=== PATIENT | male | born 1955 | race Caucasian/White ===

== ENCOUNTER 2016-02-12 10:17 | Emergency (ER) | payer OTHER ==
[~2016-02-12] VITALS: Ht 170.2 cm; Wt 86.4 kg
[~2016-02-12 10:17] MED LIST: CELLCEPT 5500 MG/TAB PO; RAYOS5 MG PO; TAMBOCOR50 MG PO
[2016-02-12 10:20] VITALS: TEMP 96.9
[2016-02-12] MEDS ORDERED: PREDNISONE 5MG5 MG PO (10:26)
[2016-02-12] MEDS ORDERED: AMOXICILLIN 50500 MG PO (10:27)
[2016-02-12] MEDS ORDERED: GLUCOTROL10 MG PO (10:27)
[2016-02-12 10:39] LABS: BASO % 0.6 % (0.0-2.0); EOS # 0.1 (0.0-0.7); EOS % 2.2 % (0-4.0); GRAN # 3.7 (1.4-6.5); GRAN % 59.2 % (42.2-75.2); HEMATOCRIT 46.5 % (42.0-52.0); HEMOGLOBIN 16.4 g/dl (13.5-18.0); LYMPH # 1.8 (1.2-3.4); LYMPH % 28.5 % (20.0-51.0); MEAN CELL VOLUME 87 fl (80.0-100.0); MEAN CORPUSCULAR HEMOGLOBIN 31 pg (27.0-31.0); MEAN CORPUSCULAR HGB CONC 35 g/dl (33.0-37.0); MEAN PLATELET VOLUME 9.9 fl (7.4-10.4); MONO # 0.5 (0.1-0.6); MONO % 8.4 % (1.7-9.3); PLATELET COUNT 144 K/mm3 (130-400); RED BLOOD COUNT 5.35 M/mm3 (4.20-5.60); REDCELL DISTRIBUTION WIDTH-CV 13.3 % (11.5-14.5); WHITE BLOOD COUNT 6.3 K/mm3 (4.8-10.8)
[2016-02-12 10:58] LABS: INR 1.1 (0.8-3.0); PROTHROMBIN TIME 12.6 SECONDS (9.7-12.8)
[2016-02-12 11:05] LABS: ADJUSTED CALCIUM 9.7 mg/dL (8.4-10.2); ALANINE AMINOTRANSFERASE 145 U/L (21-72); ALKALINE PHOSPHATASE 83 U/L (50-136); BLOOD UREA NITROGEN 17 mg/dL (9-20); CALCIUM 9.7 mg/dL (8.4-10.2); CARBON DIOXIDE 25 mmol/L (22-30); CREATININE, serum 0.65 mg/dL (0.66-1.25); GLUCOSE 266 mg/dL (74-106); POTASSIUM 4.5 mmol/L (3.4-5.0); SODIUM 135 mmol/L (137-145); TOTAL PROTEIN 7.3 gm/dL (6.4-8.2)
[2016-02-12 11:17] LABS: CHLORIDE 100 mmol/L (98-107); TROPONIN-I < 0.012 ng/mL (0.000-0.034)
[2016-02-12 11:18] LABS: ANION GAP 10 mmol/L (7-16)
[2016-02-12 13:45] VITALS: BP 147/88; PULSE 84
== END 2016-02-12 13:56 | disposition home or self-care (01) ==
LOC: COL.ER 10:17
PROVIDERS: Family Medicine
DX: R07.9 Chest pain, unspecified (principal)

== ENCOUNTER → 2016-02-14 | Outpatient (CLI) | payer OTHER ==
[~2016-02-14] MED LIST changes: +AMOXICILLIN 50500 MG PO; +GLUCOTROL10 MG PO; +PREDNISONE 5MG5 MG PO
== END ==
LOC: COL.CARD 11:03
DX: I49.8 Other specified cardiac arrhythmias (principal); R00.2 Palpitations

== ENCOUNTER → 2016-07-02 | Outpatient (CLI) | payer OTHER ==
[2016-07-03 00:12] LABS: HEMATOCRIT 44.8 % (42.0-52.0); HEMOGLOBIN 15.3 g/dl (13.5-18.0); MEAN CELL VOLUME 95 fl (80.0-100.0); MEAN CORPUSCULAR HEMOGLOBIN 32 pg (27.0-31.0); MEAN CORPUSCULAR HGB CONC 34 g/dl (33.0-37.0); PLATELET COUNT 159 K/mm3 (130-400); RED BLOOD COUNT 4.73 M/mm3 (4.20-5.60); REDCELL DISTRIBUTION WIDTH-CV 13.5 % (11.5-14.5)
[2016-07-03 00:14] LABS: ADD PATHOLOGY DIFF REVIEW NO
[2016-07-03 00:20] LABS: ADJUSTED CALCIUM 9.6 mg/dL (8.4-10.2); ALBUMIN 3.6 gm/dL (3.5-5.0); BILIRUBIN,TOTAL 1.2 mg/dL (0.0-1.0); CALCIUM 9.3 mg/dL (8.4-10.2); CREATININE, serum 0.79 mg/dL (0.66-1.25); POTASSIUM 3.6 mmol/L (3.4-5.0); TOTAL PROTEIN 7.1 gm/dL (6.4-8.2)
[2016-07-03 00:38] LABS: BAND 7 % (0-10); EOSINOPHIL 2 % (0-4); METAMYELOCYTE 2 % (0-0); NEUTROPHILS 40 % (42.0-75.2); PLATELET ESTIMATE NORMAL (NORMAL); TOTAL CELLS COUNTED 100
[2016-07-03 00:50] LABS: PSA-TOTAL 1.43 ng/mL (0-4)
[2016-07-03 16:54] LABS: ALBUMIN/CREATININE RATIO URINE 45.8 mg/g (0.0-29.0)
== END ==
LOC: COL.LAB 23:03
PROVIDERS: Family Medicine
DX: Z00.00 Encounter for general adult medical examination without abnormal findings (principal)
CPT/HCPCS: G0103

== ENCOUNTER → 2016-10-08 | Outpatient (CLI) | payer OTHER ==
[2016-10-08 13:31] LABS: HEMATOCRIT 47.2 % (42.0-52.0); MEAN CELL VOLUME 96 fl (80.0-100.0); MEAN CORPUSCULAR HEMOGLOBIN 33 pg (27.0-31.0); MEAN CORPUSCULAR HGB CONC 34 g/dl (33.0-37.0); MEAN PLATELET VOLUME 10.2 fl (7.4-10.4); PLATELET COUNT 115 K/mm3 (130-400); REDCELL DISTRIBUTION WIDTH-CV 12.5 % (11.5-14.5); WHITE BLOOD COUNT 6.2 K/mm3 (4.8-10.8)
[2016-10-08 13:37] LABS: ADJUSTED CALCIUM 9.4 mg/dL (8.4-10.2); ALBUMIN 3.9 gm/dL (3.5-5.0); BILIRUBIN,TOTAL 1.5 mg/dL (0.0-1.0); CALCIUM 9.3 mg/dL (8.4-10.2); CREATININE, serum 0.75 mg/dL (0.66-1.25); TOTAL PROTEIN 8.1 gm/dL (6.4-8.2)
[2016-10-08 14:06] LABS: PSA-TOTAL 0.68 ng/mL (0-4); THYROID STIMULATING HORMONE 0.53 uIU/mL (0.465-4.680)
[2016-10-09 00:04] LABS: ALBUMIN/CREATININE RATIO URINE 18.2 mg/g (0.0-29.0)
== END ==
LOC: COL.LAB 12:26
PROVIDERS: Family Medicine
DX: Z00.00 Encounter for general adult medical examination without abnormal findings (principal)
CPT/HCPCS: G0103

== ENCOUNTER → 2017-01-29 | Outpatient (CLI) | payer OTHER ==
[2017-01-29 07:42] LABS: BASO # 0.1 (0.0-0.2); BASO % 0.7 % (0.0-2.0); EOS # 0.3 (0.0-0.7); EOS % 3.5 % (0-4.0); GRAN # 3.8 (1.4-6.5); GRAN % 53.6 % (42.2-75.2); HEMATOCRIT 50.1 % (42.0-52.0); HEMOGLOBIN 17.1 g/dl (13.5-18.0); LYMPH # 2.4 (1.2-3.4); LYMPH % 33.1 % (20.0-51.0); MEAN CELL VOLUME 98 fl (80.0-100.0); MEAN CORPUSCULAR HEMOGLOBIN 33 pg (27.0-31.0); MEAN CORPUSCULAR HGB CONC 34 g/dl (33.0-37.0); MONO # 0.6 (0.1-0.6); MONO % 8.4 % (1.7-9.3); PLATELET COUNT 115 K/mm3 (130-400); RED BLOOD COUNT 5.14 M/mm3 (4.20-5.60); WHITE BLOOD COUNT 7.2 K/mm3 (4.8-10.8)
[2017-01-29 07:52] LABS: URINE PROTEIN:CREAT RATIO 0.1 (0.00-0.14)
[2017-01-29 07:56] LABS: BILIRUBIN,TOTAL 1.2 mg/dL (0.0-1.0); CHOLESTEROL RISK RATIO 4.2; CREATININE, serum 0.75 mg/dL (0.66-1.25); POTASSIUM 4.4 mmol/L (3.4-5.0)
[2017-01-29 08:24] LABS: PSA-TOTAL 2.01 ng/mL (0-4); THYROID STIMULATING HORMONE 0.733 uIU/mL (0.465-4.680)
== END ==
LOC: COL.LAB 07:03
PROVIDERS: Family Medicine
DX: Z00.00 Encounter for general adult medical examination without abnormal findings (principal)
CPT/HCPCS: G0103

== ENCOUNTER → 2017-04-02 | Outpatient (CLI) | payer OTHER ==
[2017-04-02] VITALS (9 sets, daily range): BP systolic 87–149; BP diastolic 55–94; PULSE 75–89
[~2017-04-02] VITALS: Ht 170.2 cm; Wt 79.5 kg
[~2017-04-02] MED LIST changes: +INVOKAMET1 PO; +INVOKAMET4 PO; +PREDNISONE20 MG PO; +TRESIBA FL100 UNIT/1 SQ; +VITAMIN C500 MG PO
== END ==
LOC: COL.RAD 12:45
DX: K75.4 Autoimmune hepatitis (principal); K22.70 Barrett's esophagus without dysplasia
CPT/HCPCS: J7040

== ENCOUNTER → 2017-04-02 | Outpatient (CLI) | payer OTHER ==
[2017-04-02 11:57] LABS: BASO # 0.1 (0.0-0.2); EOS # 0.1 (0.0-0.7); GRAN # 3.5 (1.4-6.5); GRAN % 49.7 % (42.2-75.2); HEMATOCRIT 51.7 % (42.0-52.0); HEMOGLOBIN 17.5 g/dl (13.5-18.0); LYMPH # 2.7 (1.2-3.4); LYMPH % 38.1 % (20.0-51.0); MEAN CELL VOLUME 98 fl (80.0-100.0); MEAN CORPUSCULAR HEMOGLOBIN 33 pg (27.0-31.0); MEAN CORPUSCULAR HGB CONC 34 g/dl (33.0-37.0); MEAN PLATELET VOLUME 9.6 fl (7.4-10.4); MONO # 0.7 (0.1-0.6); MONO % 9.2 % (1.7-9.3); PLATELET COUNT 125 K/mm3 (130-400); RED BLOOD COUNT 5.29 M/mm3 (4.20-5.60); REDCELL DISTRIBUTION WIDTH-CV 12.9 % (11.5-14.5)
[2017-04-02 12:10] LABS: ALBUMIN 4.1 gm/dL (3.5-5.0); BILIRUBIN,TOTAL 1.1 mg/dL (0.0-1.0); CALCIUM 9.2 mg/dL (8.4-10.2); CREATININE, serum 0.89 mg/dL (0.66-1.25); POTASSIUM 4.1 mmol/L (3.4-5.0); TOTAL PROTEIN 7.7 gm/dL (6.4-8.2)
[2017-04-02 12:14] LABS: INR 1.2 (0.8-3.0); PROTHROMBIN TIME 13.6 SECONDS (9.7-12.8)
== END ==
LOC: COL.LAB 11:00
PROVIDERS: Family Medicine
DX: K75.4 Autoimmune hepatitis (principal); R74.8 Abnormal levels of other serum enzymes

== ENCOUNTER → 2017-04-02 | Outpatient (CLI) | payer OTHER | LOC: COL.LAB 06:53 | DX: E11.9 Type 2 diabetes mellitus without complications (principal) ==

== ENCOUNTER 2017-04-30 05:53 | Day surgery (SDC) | payer OTHER ==
[~2017-04-30] VITALS: Ht 170.2 cm; Wt 80.3 kg
[~2017-04-30 05:53] MED LIST changes: -PREDNISONE20 MG PO
[2017-04-30 06:40] VITALS: BP 102/71; PULSE 95; TEMP 97.8
[2017-04-30 07:50] VITALS: BP 100/68; PULSE 82
[2017-04-30 08:05] VITALS: BP 94/64; PULSE 85
[2017-04-30 08:20] VITALS: BP 109/71; PULSE 85
== END 2017-04-30 08:30 | disposition home or self-care (01) ==
LOC: SDCO 05:53
DX: Z12.11 Encounter for screening for malignant neoplasm of colon (principal); K22.70 Barrett's esophagus without dysplasia; K21.9 Gastro-esophageal reflux disease without esophagitis; D69.6 Thrombocytopenia, unspecified; K75.4 Autoimmune hepatitis; R53.83 Other fatigue; Z79.82 Long term (current) use of aspirin; Z79.52 Long term (current) use of systemic steroids
CPT/HCPCS: OP; J2250; J3010; J7030; J7042

== ENCOUNTER → 2017-05-21 | Outpatient (CLI) | payer OTHER ==
[2017-05-21 12:40] LABS: BASO % 0.6 % (0.0-2.0); EOS # 0.1 (0.0-0.7); EOS % 1.5 % (0-4.0); GRAN # 3.4 (1.4-6.5); GRAN % 51.3 % (42.2-75.2); HEMOGLOBIN 16.9 g/dl (13.5-18.0); LYMPH # 2.3 (1.2-3.4); LYMPH % 34.9 % (20.0-51.0); MEAN CELL VOLUME 95 fl (80.0-100.0); MEAN CORPUSCULAR HEMOGLOBIN 33 pg (27.0-31.0); MEAN CORPUSCULAR HGB CONC 35 g/dl (33.0-37.0); MEAN PLATELET VOLUME 9.8 fl (7.4-10.4); MONO # 0.7 (0.1-0.6); MONO % 11.2 % (1.7-9.3); PLATELET COUNT 142 K/mm3 (130-400); RED BLOOD COUNT 5.17 M/mm3 (4.20-5.60); REDCELL DISTRIBUTION WIDTH-CV 12.8 % (11.5-14.5)
[2017-05-21 12:50] LABS: ALBUMIN 4.1 gm/dL (3.5-5.0); CALCIUM 9.7 mg/dL (8.4-10.2); CREATININE, serum 0.88 mg/dL (0.66-1.25); POTASSIUM 4.4 mmol/L (3.4-5.0); TOTAL PROTEIN 8.8 gm/dL (6.4-8.2)
== END ==
LOC: COL.LAB 12:12
PROVIDERS: Physician Assistant
DX: K75.4 Autoimmune hepatitis (principal); R74.8 Abnormal levels of other serum enzymes

== ENCOUNTER → 2017-06-18 | Outpatient (CLI) | payer OTHER ==
[2017-06-18 08:07] LABS: HEMATOCRIT 47.5 % (42.0-52.0); HEMOGLOBIN 16.4 g/dl (13.5-18.0); MEAN CELL VOLUME 93 fl (80.0-100.0); MEAN CORPUSCULAR HEMOGLOBIN 32 pg (27.0-31.0); MEAN CORPUSCULAR HGB CONC 35 g/dl (33.0-37.0); PLATELET COUNT 128 K/mm3 (130-400); RED BLOOD COUNT 5.11 M/mm3 (4.20-5.60); REDCELL DISTRIBUTION WIDTH-CV 12.5 % (11.5-14.5)
[2017-06-18 08:20] LABS: ALBUMIN 3.8 gm/dL (3.5-5.0); BILIRUBIN,TOTAL 1.1 mg/dL (0.0-1.0); CALCIUM 9.3 mg/dL (8.4-10.2); CHOLESTEROL RISK RATIO 4.4; CREATININE, serum 0.77 mg/dL (0.66-1.25); TOTAL PROTEIN 8.4 gm/dL (6.4-8.2)
[2017-06-18 09:15] LABS: PSA-TOTAL 0.43 ng/mL (0-4)
[2017-06-18 10:06] LABS: THYROID STIMULATING HORMONE 0.655 uIU/mL (0.465-4.680)
== END ==
LOC: COL.LAB 07:34
PROVIDERS: Family Medicine
DX: Z00.00 Encounter for general adult medical examination without abnormal findings (principal); Z12.5 Encounter for screening for malignant neoplasm of prostate; Z13.220 Encounter for screening for lipoid disorders; E11.9 Type 2 diabetes mellitus without complications; R94.6 Abnormal results of thyroid function studies
CPT/HCPCS: G0103

== ENCOUNTER → 2017-07-19 | Outpatient (CLI) | payer OTHER ==
[2017-07-19 16:07] LABS: BILIRUBIN UNCONJUGATED 0.6 mg/dL (0.0-1.1); BILIRUBIN,DIRECT 0.5 mg/dL (0.0-0.4); BILIRUBIN,TOTAL 1.1 mg/dL (0.0-1.0); TOTAL PROTEIN 8.2 gm/dL (6.4-8.2)
== END ==
LOC: COL.LAB 15:27
PROVIDERS: Internal Medicine Gastroenterology
DX: K75.4 Autoimmune hepatitis (principal)

== ENCOUNTER → 2017-08-23 | Outpatient (CLI) | payer OTHER | LOC: COL.LAB 08:46 | DX: R31.9 Hematuria, unspecified (principal) ==

== ENCOUNTER → 2017-08-23 | Outpatient (CLI) | payer OTHER ==
[2017-08-23 09:47] LABS: ALBUMIN 3.9 gm/dL (3.5-5.0); BILIRUBIN UNCONJUGATED 0.7 mg/dL (0.0-1.1); BILIRUBIN,DIRECT 0.6 mg/dL (0.0-0.4); BILIRUBIN,TOTAL 1.4 mg/dL (0.0-1.0); TOTAL PROTEIN 8.1 gm/dL (6.4-8.2)
== END ==
LOC: COL.LAB 08:49
PROVIDERS: Internal Medicine Gastroenterology
DX: K75.4 Autoimmune hepatitis (principal)

== ENCOUNTER → 2017-08-25 | Outpatient (CLI) | payer OTHER | LOC: COL.RAD 07:51 | DX: N20.1 Calculus of ureter (principal); N20.0 Calculus of kidney; N32.9 Bladder disorder, unspecified ==

== ENCOUNTER → 2017-09-02 | Outpatient (CLI) | payer OTHER | LOC: COL.LAB 07:14 | DX: E11.9 Type 2 diabetes mellitus without complications (principal) ==

== ENCOUNTER → 2017-09-30 | Outpatient (CLI) | payer OTHER ==
[2017-09-30 10:05] LABS: ALBUMIN 3.8 gm/dL (3.5-5.0); BILIRUBIN,DIRECT 0.6 mg/dL (0.0-0.4); BILIRUBIN,TOTAL 1.5 mg/dL (0.0-1.0)
== END ==
LOC: COL.LAB 09:22
DX: K75.4 Autoimmune hepatitis (principal)

== ENCOUNTER → 2017-11-01 | Outpatient (CLI) | payer OTHER ==
[2017-11-01 07:34] LABS: ALBUMIN 3.7 gm/dL (3.5-5.0); TOTAL PROTEIN 7.8 gm/dL (6.4-8.2)
[2017-11-01 07:43] LABS: BILIRUBIN,DIRECT 0.5 mg/dL (0.0-0.4)
[2017-11-01 07:44] LABS: BILIRUBIN UNCONJUGATED 0.6 mg/dL (0.0-1.1)
== END ==
LOC: COL.LAB 07:00
PROVIDERS: Internal Medicine Gastroenterology
DX: K75.4 Autoimmune hepatitis (principal)

== ENCOUNTER → 2017-11-29 | Outpatient (CLI) | payer OTHER ==
[2017-11-29 07:57] LABS: BASO % 0.8 % (0.0-2.0); EOS # 0.2 (0.0-0.7); EOS % 3.6 % (0-4.0); GRAN # 2.3 (1.4-6.5); GRAN % 48.5 % (42.2-75.2); HEMATOCRIT 47.1 % (42.0-52.0); HEMOGLOBIN 15.5 g/dl (13.5-18.0); LYMPH # 1.7 (1.2-3.4); LYMPH % 36.2 % (20.0-51.0); MEAN CELL VOLUME 99 fl (80.0-100.0); MEAN CORPUSCULAR HEMOGLOBIN 33 pg (27.0-31.0); MEAN CORPUSCULAR HGB CONC 33 g/dl (33.0-37.0); MEAN PLATELET VOLUME 10.2 fl (7.4-10.4); MONO # 0.5 (0.1-0.6); MONO % 10.7 % (1.7-9.3); PLATELET COUNT 120 K/mm3 (130-400); RED BLOOD COUNT 4.77 M/mm3 (4.20-5.60); REDCELL DISTRIBUTION WIDTH-CV 12.7 % (11.5-14.5)
[2017-11-29 08:11] LABS: ALBUMIN 3.8 gm/dL (3.5-5.0); BILIRUBIN,TOTAL 1.5 mg/dL (0.0-1.0); CALCIUM 9.2 mg/dL (8.4-10.2); CREATININE, serum 0.79 mg/dL (0.66-1.25); POTASSIUM 4.3 mmol/L (3.4-5.0); TOTAL PROTEIN 8.6 gm/dL (6.4-8.2)
== END ==
LOC: COL.LAB 07:23
PROVIDERS: Family Medicine
DX: K75.4 Autoimmune hepatitis (principal)

== ENCOUNTER → 2017-12-13 | Outpatient (CLI) | payer OTHER ==
[2017-12-13 09:31] LABS: BASO % 0.6 % (0.0-2.0); EOS # 0.1 (0.0-0.7); EOS % 1.3 % (0-4.0); GRAN # 2.8 (1.4-6.5); GRAN % 52.4 % (42.2-75.2); HEMATOCRIT 49.3 % (42.0-52.0); HEMOGLOBIN 16.9 g/dl (13.5-18.0); LYMPH % 37.2 % (20.0-51.0); MEAN CELL VOLUME 95 fl (80.0-100.0); MEAN CORPUSCULAR HEMOGLOBIN 33 pg (27.0-31.0); MEAN CORPUSCULAR HGB CONC 34 g/dl (33.0-37.0); MEAN PLATELET VOLUME 10.6 fl (7.4-10.4); MONO # 0.4 (0.1-0.6); MONO % 8.1 % (1.7-9.3); PLATELET COUNT 109 K/mm3 (130-400); REDCELL DISTRIBUTION WIDTH-CV 12.4 % (11.5-14.5)
[2017-12-13 17:21] LABS: ALBUMIN 3.9 gm/dL (3.5-5.0); BILIRUBIN,TOTAL 1.1 mg/dL (0.0-1.0); CALCIUM 9.6 mg/dL (8.4-10.2); CREATININE, serum 1.57 mg/dL (0.66-1.25); POTASSIUM 4.9 mmol/L (3.4-5.0); TOTAL PROTEIN 8.3 gm/dL (6.4-8.2)
== END ==
LOC: COL.LAB 08:21
PROVIDERS: Physician Assistant
DX: K75.4 Autoimmune hepatitis (principal)

== ENCOUNTER → 2017-12-20 | Outpatient (CLI) | payer OTHER ==
[2017-12-20 09:47] LABS: BILIRUBIN,TOTAL 1.3 mg/dL (0.0-1.0); CALCIUM 9.5 mg/dL (8.4-10.2); CREATININE, serum 1.06 mg/dL (0.66-1.25); MAGNESIUM 1.4 mg/dL (1.6-2.3); PHOSPHOROUS 3.6 mg/dL (2.5-4.5); POTASSIUM 4.4 mmol/L (3.4-5.0); TOTAL PROTEIN 8.5 gm/dL (6.4-8.2)
== END ==
LOC: COL.LAB 08:46
PROVIDERS: Physician Assistant
DX: K75.4 Autoimmune hepatitis (principal); K22.710 Barrett's esophagus with low grade dysplasia

== ENCOUNTER → 2018-01-03 | Outpatient (CLI) | payer OTHER ==
[2018-01-03 10:04] LABS: ALBUMIN 4.1 gm/dL (3.5-5.0); BILIRUBIN,TOTAL 1.4 mg/dL (0.0-1.0); CALCIUM 9.8 mg/dL (8.4-10.2); MAGNESIUM 1.7 mg/dL (1.6-2.3); PHOSPHOROUS 3.9 mg/dL (2.5-4.5); TOTAL PROTEIN 8.8 gm/dL (6.4-8.2)
== END ==
LOC: COL.LAB 08:21
PROVIDERS: Physician Assistant
DX: K75.4 Autoimmune hepatitis (principal); K22.710 Barrett's esophagus with low grade dysplasia

== ENCOUNTER → 2018-02-18 | Outpatient (CLI) | payer OTHER | LOC: COL.LAB 13:43 | DX: R74.8 Abnormal levels of other serum enzymes (principal) ==

== ENCOUNTER → 2018-02-28 | Outpatient (CLI) | payer OTHER ==
[2018-02-28 12:54] LABS: BASO % 0.6 % (0.0-2.0); EOS # 0.1 (0.0-0.7); EOS % 2.1 % (0-4.0); GRAN # 2.3 (1.4-6.5); GRAN % 47.9 % (42.2-75.2); HEMOGLOBIN 15.7 g/dl (13.5-18.0); LYMPH # 1.9 (1.2-3.4); LYMPH % 39.7 % (20.0-51.0); MEAN CELL VOLUME 95 fl (80.0-100.0); MEAN CORPUSCULAR HEMOGLOBIN 32 pg (27.0-31.0); MEAN CORPUSCULAR HGB CONC 34 g/dl (33.0-37.0); MEAN PLATELET VOLUME 9.7 fl (7.4-10.4); MONO # 0.5 (0.1-0.6); MONO % 9.5 % (1.7-9.3); PLATELET COUNT 96 K/mm3 (130-400); RED BLOOD COUNT 4.85 M/mm3 (4.20-5.60); REDCELL DISTRIBUTION WIDTH-CV 13.3 % (11.5-14.5)
[2018-02-28 12:56] LABS: INR 1.3 (0.8-3.0); PROTHROMBIN TIME 14.8 SECONDS (9.7-12.8)
[2018-02-28 13:01] LABS: ALBUMIN 4.1 gm/dL (3.5-5.0); BILIRUBIN,TOTAL 1.4 mg/dL (0.0-1.0); CALCIUM 9.5 mg/dL (8.4-10.2); CREATININE, serum 0.79 mg/dL (0.66-1.25); POTASSIUM 3.8 mmol/L (3.4-5.0); TOTAL PROTEIN 8.7 gm/dL (6.4-8.2)
== END ==
LOC: COL.LAB 12:07
PROVIDERS: Physician Assistant
DX: R74.8 Abnormal levels of other serum enzymes (principal)

== ENCOUNTER → 2018-03-04 | Outpatient (CLI) | payer OTHER ==
--- NOTE | 2018-03-01 09:35 | NUR ---
attempted to reach pt. Left message on answering machine. Pt given instructions and phone number to return call to go over medical health history and medications.
[~2018-03-04] VITALS: Ht 170.2 cm; Wt 72.1 kg
[2018-03-04] VITALS (14 sets, daily range): BP systolic 87–157; BP diastolic 49–96; PULSE 55–92
--- NOTE | 2018-03-04 07:40 | NUR ---
PT BROUGHTINTO THE CT ROOM. MONITORING EQUIPMENT PLACED ON PT. PT HAS PVC ON THE MONITOR. TIME OUT COMPLETED.
--- NOTE | 2018-03-04 07:45 | NUR ---
PT DOING WELL.
--- NOTE | 2018-03-04 07:50 | NUR ---
PT DOING WELL. NO PAIN. HEART RYTHUM REMAINS REGULAR WITH PVC'S. PT DENIES NEEDS OR PAIN
--- NOTE | 2018-03-04 08:00 | NUR ---
PT DOING WELL. NO COMPLICATIONS, NO PAIN
--- NOTE | 2018-03-04 08:05 | NUR ---
BP DROPPED, NOTIFIED. WILL HOLD PRESSURE. RECHECK OF BP SHOWS 101/62. MONITORING EQUIPMENT REMOVED AND PT ASSISTED INTO CHAIR AND TAKEN TO RAD HOLDING. NO PAIN, JUST LIGHT HEADED.
--- NOTE | 2018-03-04 10:05 | NUR ---
PT HAD NO QUESTIONS REGARDING DC INSTRUCTIONS THAT WE WENT OVER [facility]ER. PT WAS TAKEN DOWN TO RIDE IN WHEELCHAIR. PT DENIES PAIN, TENDERNESS OR LIGHTHEADEDNESS.
== END ==
LOC: COL.RAD 06:30
DX: R74.8 Abnormal levels of other serum enzymes (principal)

== ENCOUNTER → 2018-03-28 | Outpatient (CLI) | payer OTHER | LOC: COL.LAB 07:57 | DX: R94.5 Abnormal results of liver function studies (principal) ==

== ENCOUNTER → 2018-03-30 | Outpatient (CLI) | payer OTHER | LOC: COL.LAB 10:19 | DX: K75.4 Autoimmune hepatitis (principal); R74.8 Abnormal levels of other serum enzymes ==

== ENCOUNTER → 2018-03-30 | Outpatient (CLI) | payer OTHER ==
[2018-03-30 08:56] LABS: ALBUMIN 3.8 gm/dL (3.5-5.0); BILIRUBIN,TOTAL 1.5 mg/dL (0.0-1.0); CALCIUM 9.4 mg/dL (8.4-10.2); CREATININE, serum 0.9 mg/dL (0.66-1.25); POTASSIUM 4.7 mmol/L (3.4-5.0); TOTAL PROTEIN 8.4 gm/dL (6.4-8.2)
== END ==
LOC: COL.LAB 07:42
PROVIDERS: Physician Assistant
DX: R74.8 Abnormal levels of other serum enzymes (principal)

== ENCOUNTER 2018-04-06 06:27 | Day surgery (SDC) | payer OTHER ==
[~2018-04-06] VITALS: Ht 170.2 cm; Wt 71.8 kg
[2018-04-06 07:36] VITALS: BP 125/84; PULSE 52; TEMP 97.9
[2018-04-06] MEDS ORDERED: INVOKAMET1 PO (09:05)
[2018-04-06] MEDS ORDERED: PRIL40 PO (09:05)
[2018-04-06] MEDS ORDERED: TAMBOCOR50 MG PO (09:06)
[2018-04-06] MEDS ORDERED: PROGRAF 1MG1 MG PO (09:07)
[2018-04-06 10:35] VITALS: BP 109/75; PULSE 83
--- NOTE | 2018-04-06 10:35 | NUR ---
Patient returns to room 1 per cart and arouses to verbal stimuli. Foot of cart elevated and delia wrap dressing clean and dry. Post op shoe is on. IV fluids infusing. Siderails up x2 and call light in reach. Allowed to rest.
[2018-04-06 10:50] VITALS: BP 109/77; PULSE 82
--- NOTE | 2018-04-06 10:50 | NUR ---
Resting without complaints of pain and foot of cart elevated. Dressing remains dry and post op shoe in place.
[2018-04-06 11:05] VITALS: BP 116/86; PULSE 76
--- NOTE | 2018-04-06 11:05 | NUR ---
Continues to rest and is sipping on water. Room air sats 97%.
[2018-04-06 11:20] VITALS: BP 116/83; PULSE 76
--- NOTE | 2018-04-06 11:20 | NUR ---
Eating muffin and drinking water. Denies need for pain medication. Foot of cart elevated and dressing dry.
[2018-04-06 11:35] VITALS: BP 133/74; PULSE 81
--- NOTE | 2018-04-06 11:35 | NUR ---
Spouse in room. IV discontinued and bandaid applied to site. Denies pain or nausea.
--- NOTE | 2018-04-06 11:45 | NUR ---
Patient sitting on edge of cart and is dressing with assist of spouse. Post op shoe on.
[2018-04-06] MEDS ORDERED: PERCOCET 325 MG1 TA2 PO (11:58)
--- NOTE | 2018-04-06 12:04 | NUR ---
Given dismissal instructions and voices understanding of home cares and follow as scheduled by Dr. Whipple. Was provided script for Percocet. Assisted into wheelchair and taken by wheelchair to spouse's office who will be taking the patient home. Belongings with patient.
== END 2018-04-06 12:04 | disposition home or self-care (01) ==
LOC: SDCO 06:27
DX: M20.22 Hallux rigidus, left foot (principal)
CPT/HCPCS: J0690; J1885; J2250; J2405; J2704; J3010; J7120

== ENCOUNTER → 2018-05-12 | Outpatient (CLI) | payer OTHER ==
[~2018-05-12] MED LIST changes: +PERCOCET 325 MG1 TA2 PO; +PRIL40 PO; +PROGRAF 1MG1 MG PO
[2018-05-12 08:18] LABS: BASO % 0.5 % (0.0-2.0); EOS # 0.1 (0.0-0.7); EOS % 1.3 % (0-4.0); GRAN # 5.3 (1.4-6.5); GRAN % 68.1 % (42.2-75.2); HEMATOCRIT 42.3 % (42.0-52.0); HEMOGLOBIN 13.8 g/dl (13.5-18.0); LYMPH # 1.6 (1.2-3.4); LYMPH % 21.1 % (20.0-51.0); MEAN CELL VOLUME 96 fl (80.0-100.0); MEAN CORPUSCULAR HEMOGLOBIN 31 pg (27.0-31.0); MEAN CORPUSCULAR HGB CONC 33 g/dl (33.0-37.0); MEAN PLATELET VOLUME 9.7 fl (7.4-10.4); MONO # 0.7 (0.1-0.6); MONO % 8.5 % (1.7-9.3); PLATELET COUNT 142 K/mm3 (130-400); RED BLOOD COUNT 4.39 M/mm3 (4.20-5.60); REDCELL DISTRIBUTION WIDTH-CV 14.1 % (11.5-14.5)
== END ==
LOC: COL.LAB 07:49
PROVIDERS: Family Medicine
DX: K75.4 Autoimmune hepatitis (principal)

== ENCOUNTER → 2018-05-31 | Outpatient (CLI) | payer OTHER ==
[2018-05-31 08:20] LABS: INR 1.4 (0.8-3.0); PROTHROMBIN TIME 15.7 SECONDS (9.7-12.8)
[2018-05-31 08:28] LABS: ALBUMIN 3.4 gm/dL (3.5-5.0); CALCIUM 9.1 mg/dL (8.4-10.2); CREATININE, serum 0.84 (0.66-1.25); POTASSIUM 4.3 mmol/L (3.4-5.0); TOTAL PROTEIN 8.5 gm/dL (6.4-8.2)
== END ==
LOC: COL.LAB 07:55
PROVIDERS: Physician Assistant
DX: K75.4 Autoimmune hepatitis (principal)

== ENCOUNTER → 2018-07-11 | Outpatient (CLI) | payer OTHER ==
[2018-07-11 10:40] LABS: INR 1.2 (0.8-3.0); PROTHROMBIN TIME 14.1 SECONDS (9.7-12.8)
[2018-07-11 10:46] LABS: ALBUMIN 3.5 gm/dL (3.5-5.0); BILIRUBIN,TOTAL 1.3 mg/dL (0.0-1.0); CALCIUM 9.6 mg/dL (8.4-10.2); CREATININE, serum 0.98 (0.66-1.25); POTASSIUM 5.1 mmol/L (3.4-5.0); TOTAL PROTEIN 8.4 gm/dL (6.4-8.2)
== END ==
LOC: COL.LAB 09:47
PROVIDERS: Physician Assistant
DX: K75.4 Autoimmune hepatitis (principal); R53.1 Weakness

== ENCOUNTER → 2018-08-05 | Outpatient (CLI) | payer OTHER ==
[2018-08-05 08:47] LABS: HEMATOCRIT 39.5 % (42.0-52.0); HEMOGLOBIN 13.4 g/dl (13.5-18.0); MEAN CELL VOLUME 95 fl (80.0-100.0); MEAN CORPUSCULAR HEMOGLOBIN 32 pg (27.0-31.0); MEAN CORPUSCULAR HGB CONC 34 g/dl (33.0-37.0); MEAN PLATELET VOLUME 10.1 fl (7.4-10.4); PLATELET COUNT 96 K/mm3 (130-400); RED BLOOD COUNT 4.16 M/mm3 (4.20-5.60); REDCELL DISTRIBUTION WIDTH-CV 14.3 % (11.5-14.5)
[2018-08-05 09:16] LABS: ERYTHROCYTE SEDIMENTATION RATE 13 mm/hr (0-30)
[2018-08-05 09:31] LABS: ALBUMIN 3.6 gm/dL (3.5-5.0); BILIRUBIN,TOTAL 1.4 mg/dL (0.0-1.0); C-REACTIVE PROTEIN 0.7 mg/dL (0.0-0.9); CALCIUM 9.3 mg/dL (8.4-10.2); CHOLESTEROL RISK RATIO 3.4; CREATININE, serum 0.89 (0.66-1.25); POTASSIUM 4.3 mmol/L (3.4-5.0); TOTAL PROTEIN 8.3 gm/dL (6.4-8.2)
[2018-08-05 09:59] LABS: TSH w REFLEX 0.935 uIU/mL (0.465-4.680)
[2018-08-05 19:24] LABS: URINE MICROALBUMIN 1.6 mg/dL (0.0-1.7)
== END ==
LOC: COL.LAB 07:53
PROVIDERS: Family Medicine
DX: E11.9 Type 2 diabetes mellitus without complications (principal); R53.83 Other fatigue

== ENCOUNTER → 2018-08-22 | Outpatient (CLI) | payer OTHER | LOC: COL.RAD 07:09 | DX: R41.3 Other amnesia (principal) | CPT/HCPCS: A9585 ==

== ENCOUNTER → 2018-08-23 | Outpatient (CLI) | payer OTHER | LOC: COL.LAB 07:12 | DX: G31.84 Mild cognitive impairment of uncertain or unknown etiology (principal); F51.01 Primary insomnia ==

== ENCOUNTER → 2018-09-06 | Outpatient (CLI) | payer OTHER ==
[2018-09-06 11:03] LABS: BASO % 0.5 % (0.0-2.0); EOS # 0.1 (0.0-0.7); EOS % 2.5 % (0-4.0); GRAN % 53.9 % (42.2-75.2); HEMATOCRIT 39.8 % (42.0-52.0); HEMOGLOBIN 13.2 g/dl (13.5-18.0); LYMPH # 1.8 (1.2-3.4); MEAN CELL VOLUME 96 fl (80.0-100.0); MEAN CORPUSCULAR HEMOGLOBIN 32 pg (27.0-31.0); MEAN CORPUSCULAR HGB CONC 33 g/dl (33.0-37.0); MEAN PLATELET VOLUME 10.2 fl (7.4-10.4); MONO # 0.5 (0.1-0.6); MONO % 9.7 % (1.7-9.3); PLATELET COUNT 99 K/mm3 (130-400); RED BLOOD COUNT 4.15 M/mm3 (4.20-5.60); REDCELL DISTRIBUTION WIDTH-CV 14.2 % (11.5-14.5)
== END ==
LOC: COL.LAB 10:27
PROVIDERS: Physician Assistant
DX: K74.60 Unspecified cirrhosis of liver (principal); K75.4 Autoimmune hepatitis

== ENCOUNTER → 2018-09-09 | Outpatient (CLI) | payer OTHER ==
[2018-09-09 13:06] LABS: BASO # 0.1 (0.0-0.2); EOS # 0.2 (0.0-0.7); EOS % 3.1 % (0-4.0); GRAN # 2.7 (1.4-6.5); GRAN % 51.7 % (42.2-75.2); HEMATOCRIT 38.6 % (42.0-52.0); LYMPH # 1.7 (1.2-3.4); LYMPH % 33.6 % (20.0-51.0); MEAN CELL VOLUME 96 fl (80.0-100.0); MEAN CORPUSCULAR HEMOGLOBIN 32 pg (27.0-31.0); MEAN CORPUSCULAR HGB CONC 34 g/dl (33.0-37.0); MEAN PLATELET VOLUME 10.2 fl (7.4-10.4); MONO # 0.5 (0.1-0.6); MONO % 10.2 % (1.7-9.3); PLATELET COUNT 98 K/mm3 (130-400); RED BLOOD COUNT 4.04 M/mm3 (4.20-5.60); REDCELL DISTRIBUTION WIDTH-CV 13.8 % (11.5-14.5)
[2018-09-09 13:14] LABS: ALBUMIN 3.6 gm/dL (3.5-5.0); BILIRUBIN,TOTAL 1.2 mg/dL (0.0-1.0); CALCIUM 9.2 mg/dL (8.4-10.2); CREATININE, serum 0.86 (0.66-1.25); POTASSIUM 4.4 mmol/L (3.4-5.0); TOTAL PROTEIN 8.1 gm/dL (6.4-8.2)
== END ==
LOC: COL.LAB 12:24
PROVIDERS: Physician Assistant
DX: K74.60 Unspecified cirrhosis of liver (principal); K75.4 Autoimmune hepatitis

== ENCOUNTER → 2018-10-03 | Outpatient (CLI) | payer OTHER ==
[2018-10-03 17:26] LABS: ALBUMIN 3.8 gm/dL (3.5-5.0); BILIRUBIN,TOTAL 0.9 mg/dL (0.0-1.0); CREATININE, serum 1.15 (0.66-1.25); POTASSIUM 4.3 mmol/L (3.4-5.0)
[2018-10-03 17:30] LABS: BASO % 0.5 % (0.0-2.0); EOS # 0.1 (0.0-0.7); EOS % 3.1 % (0-4.0); HEMATOCRIT 38.7 % (42.0-52.0); HEMOGLOBIN 13.1 g/dl (13.5-18.0); LYMPH # 1.4 (1.2-3.4); LYMPH % 36.5 % (20.0-51.0); MEAN CELL VOLUME 95 fl (80.0-100.0); MEAN CORPUSCULAR HEMOGLOBIN 32 pg (27.0-31.0); MEAN CORPUSCULAR HGB CONC 34 g/dl (33.0-37.0); MEAN PLATELET VOLUME 10.2 fl (7.4-10.4); MONO # 0.3 (0.1-0.6); MONO % 8.4 % (1.7-9.3); PLATELET COUNT 82 K/mm3 (130-400); RED BLOOD COUNT 4.06 M/mm3 (4.20-5.60); REDCELL DISTRIBUTION WIDTH-CV 13.6 % (11.5-14.5)
== END ==
LOC: COL.LAB 16:26
PROVIDERS: Physician Assistant
DX: K74.60 Unspecified cirrhosis of liver (principal); K75.4 Autoimmune hepatitis

== ENCOUNTER → 2018-10-21 | Outpatient (CLI) | payer OTHER | LOC: COL.LAB 10:53 | DX: R74.8 Abnormal levels of other serum enzymes (principal) ==

== ENCOUNTER → 2018-11-02 | Outpatient (CLI) | payer OTHER ==
[2018-11-02 10:15] LABS: ALBUMIN 3.8 gm/dL (3.5-5.0); BILIRUBIN,TOTAL 1.2 mg/dL (0.0-1.0); CALCIUM 9.4 mg/dL (8.4-10.2); CREATININE, serum 1.08 (0.66-1.25); MAGNESIUM 1.8 mg/dL (1.6-2.3); POTASSIUM 4.5 mmol/L (3.4-5.0)
== END ==
LOC: COL.LAB 09:31
PROVIDERS: Internal Medicine Gastroenterology
DX: K75.4 Autoimmune hepatitis (principal); K74.60 Unspecified cirrhosis of liver

== ENCOUNTER → 2018-11-16 | Outpatient (CLI) | payer OTHER ==
[2018-11-16 13:50] LABS: ALBUMIN 3.6 gm/dL (3.5-5.0); BILIRUBIN,TOTAL 0.9 mg/dL (0.0-1.0); CALCIUM 9.5 mg/dL (8.4-10.2); CREATININE, serum 0.92 (0.66-1.25); POTASSIUM 4.8 mmol/L (3.4-5.0); TOTAL PROTEIN 7.8 gm/dL (6.4-8.2)
== END ==
LOC: COL.LAB 13:06
PROVIDERS: Physician Assistant
DX: K74.60 Unspecified cirrhosis of liver (principal); K75.4 Autoimmune hepatitis; R53.83 Other fatigue; R74.8 Abnormal levels of other serum enzymes; R25.1 Tremor, unspecified

== ENCOUNTER → 2019-01-04 | Outpatient (CLI) | payer OTHER | LOC: COL.LAB 07:57 | DX: R74.8 Abnormal levels of other serum enzymes (principal) ==

== ENCOUNTER → 2019-01-13 | Outpatient (CLI) | payer OTHER ==
[2019-01-13 11:53] LABS: BASO % 0.6 % (0.0-2.0); EOS # 0.2 (0.0-0.7); EOS % 2.8 % (0-4.0); GRAN # 3.3 (1.4-6.5); GRAN % 60.3 % (42.2-75.2); HEMATOCRIT 38.6 % (42.0-52.0); HEMOGLOBIN 12.6 g/dl (13.5-18.0); LYMPH # 1.4 (1.2-3.4); LYMPH % 26.7 % (20.0-51.0); MEAN CELL VOLUME 99 fl (80.0-100.0); MEAN CORPUSCULAR HEMOGLOBIN 32 pg (27.0-31.0); MEAN CORPUSCULAR HGB CONC 33 g/dl (33.0-37.0); MEAN PLATELET VOLUME 10.5 fl (7.4-10.4); MONO # 0.5 (0.1-0.6); MONO % 9.4 % (1.7-9.3); PLATELET COUNT 100 K/mm3 (130-400); RED BLOOD COUNT 3.91 M/mm3 (4.20-5.60); REDCELL DISTRIBUTION WIDTH-CV 13.8 % (11.5-14.5)
[2019-01-13 11:56] LABS: INR 1.3 (0.8-3.0); PROTHROMBIN TIME 14.7 SECONDS (9.7-12.8)
[2019-01-13 12:06] LABS: ALBUMIN 3.4 gm/dL (3.5-5.0); BILIRUBIN,TOTAL 1.6 mg/dL (0.0-1.0); CALCIUM 8.9 mg/dL (8.4-10.2); CREATININE, serum 0.88 (0.66-1.25); POTASSIUM 4.5 mmol/L (3.4-5.0); TOTAL PROTEIN 8.1 gm/dL (6.4-8.2)
== END ==
LOC: COL.LAB 11:10
PROVIDERS: Physician Assistant
DX: K75.4 Autoimmune hepatitis (principal); K74.60 Unspecified cirrhosis of liver

== ENCOUNTER → 2019-01-26 | Outpatient (CLI) | payer OTHER ==
[2019-01-26 09:27] LABS: HEMATOCRIT 38.1 % (42.0-52.0); HEMOGLOBIN 12.7 g/dl (13.5-18.0); MEAN CELL VOLUME 96 fl (80.0-100.0); MEAN CORPUSCULAR HEMOGLOBIN 32 pg (27.0-31.0); MEAN CORPUSCULAR HGB CONC 33 g/dl (33.0-37.0); MEAN PLATELET VOLUME 10.5 fl (7.4-10.4); PLATELET COUNT 101 K/mm3 (130-400); RED BLOOD COUNT 3.96 M/mm3 (4.20-5.60); REDCELL DISTRIBUTION WIDTH-CV 13.8 % (11.5-14.5)
[2019-01-26 09:46] LABS: ALBUMIN 3.4 gm/dL (3.5-5.0); BILIRUBIN,TOTAL 1.3 mg/dL (0.0-1.0); CALCIUM 8.9 mg/dL (8.4-10.2); CHOLESTEROL RISK RATIO 4.2; CREATININE, serum 0.89 (0.66-1.25); POTASSIUM 4.4 mmol/L (3.4-5.0); TOTAL PROTEIN 8.1 gm/dL (6.4-8.2)
[2019-01-26 10:15] LABS: TSH w REFLEX 0.982 uIU/mL (0.465-4.680)
[2019-01-26 22:47] LABS: URINE MICROALBUMIN 0.5 mg/dL (0.0-1.7)
== END ==
LOC: COL.LAB 08:50
PROVIDERS: Family Medicine
DX: E11.9 Type 2 diabetes mellitus without complications (principal)

== ENCOUNTER → 2019-02-13 | Outpatient (CLI) | payer OTHER ==
--- NOTE | 2019-02-09 08:20 | NUR ---
LMOM WITH INSTRUCTIONS AND CONTACT INFORMATION
== END ==
LOC: COL.VAS 07:52
DX: I51.7 Cardiomegaly (principal); I08.0 Rheumatic disorders of both mitral and aortic valves

== ENCOUNTER → 2019-02-20 | Outpatient (CLI) | payer OTHER ==
[2019-02-20 07:27] LABS: BASO % 0.9 % (0.0-2.0); EOS # 0.2 (0.0-0.7); EOS % 3.8 % (0-4.0); GRAN # 2.1 (1.4-6.5); GRAN % 45.1 % (42.2-75.2); HEMOGLOBIN 12.7 g/dl (13.5-18.0); LYMPH # 1.9 (1.2-3.4); LYMPH % 39.8 % (20.0-51.0); MEAN CELL VOLUME 96 fl (80.0-100.0); MEAN CORPUSCULAR HEMOGLOBIN 32 pg (27.0-31.0); MEAN CORPUSCULAR HGB CONC 33 g/dl (33.0-37.0); MEAN PLATELET VOLUME 10.5 fl (7.4-10.4); MONO # 0.5 (0.1-0.6); PLATELET COUNT 100 K/mm3 (130-400); RED BLOOD COUNT 3.94 M/mm3 (4.20-5.60); REDCELL DISTRIBUTION WIDTH-CV 14.9 % (11.5-14.5)
[2019-02-20 07:40] LABS: ALBUMIN 3.4 gm/dL (3.5-5.0); BILIRUBIN,TOTAL 1.6 mg/dL (0.0-1.0); CALCIUM 9.2 mg/dL (8.4-10.2); CREATININE, serum 1.29 (0.66-1.25); POTASSIUM 4.1 mmol/L (3.4-5.0); TOTAL PROTEIN 8.5 gm/dL (6.4-8.2)
== END ==
LOC: COL.LAB 06:58
PROVIDERS: Physician Assistant
DX: K74.60 Unspecified cirrhosis of liver (principal); K75.4 Autoimmune hepatitis; R41.82 Altered mental status, unspecified

== ENCOUNTER → 2019-03-08 | Outpatient (CLI) | payer OTHER ==
[~2019-03-08] VITALS: Ht 170.3 cm; Wt 69.1 kg
[~2019-03-08] MED LIST changes: +TAMBOCOR 1100 MG/TAB PO
[2019-03-08 10:06] VITALS: BP 158/89; PULSE 79
[2019-03-08 11:29] VITALS: BP 120/64; PULSE 82
[2019-03-08 11:30] VITALS: BP 129/66; PULSE 79
[2019-03-08 11:31] VITALS: BP 122/82; PULSE 79
[2019-03-08 11:32] VITALS: BP 133/70; PULSE 78
== END ==
LOC: COL.CARD 09:56
DX: I49.3 Ventricular premature depolarization (principal); I35.9 Nonrheumatic aortic valve disorder, unspecified; Z79.899 Other long term (current) drug therapy
CPT/HCPCS: A9500; J2785

== ENCOUNTER → 2019-03-17 | Outpatient (CLI) | payer OTHER ==
[2019-03-17 10:46] LABS: ALBUMIN 3.3 gm/dL (3.5-5.0); BILIRUBIN,TOTAL 1.8 mg/dL (0.0-1.0); CALCIUM 9.2 mg/dL (8.4-10.2); CREATININE, serum 1.16 (0.66-1.25); POTASSIUM 4.7 mmol/L (3.4-5.0); TOTAL PROTEIN 7.5 gm/dL (6.4-8.2)
[2019-03-17 10:55] LABS: BASO % 0.1 % (0.0-2.0); GRAN # 6.4 (1.4-6.5); GRAN % 72.4 % (42.2-75.2); HEMATOCRIT 38.6 % (42.0-52.0); HEMOGLOBIN 12.9 g/dl (13.5-18.0); LYMPH # 1.7 (1.2-3.4); LYMPH % 19.1 % (20.0-51.0); MEAN CELL VOLUME 98 fl (80.0-100.0); MEAN CORPUSCULAR HEMOGLOBIN 33 pg (27.0-31.0); MEAN CORPUSCULAR HGB CONC 33 g/dl (33.0-37.0); MEAN PLATELET VOLUME 11.1 fl (7.4-10.4); MONO # 0.7 (0.1-0.6); MONO % 7.8 % (1.7-9.3); PLATELET COUNT 84 K/mm3 (130-400); RED BLOOD COUNT 3.96 M/mm3 (4.20-5.60); REDCELL DISTRIBUTION WIDTH-CV 15.7 % (11.5-14.5)
== END ==
LOC: COL.LAB 10:00
PROVIDERS: Physician Assistant
DX: R74.8 Abnormal levels of other serum enzymes (principal); K75.4 Autoimmune hepatitis; K74.60 Unspecified cirrhosis of liver; R53.83 Other fatigue; I49.9 Cardiac arrhythmia, unspecified; R63.0 Anorexia; R06.02 Shortness of breath; R53.1 Weakness

== ENCOUNTER → 2019-03-20 | Outpatient (CLI) | payer OTHER ==
[2019-03-20 13:59] LABS: HEMATOCRIT 40.1 % (42.0-52.0); HEMOGLOBIN 13.4 g/dl (13.5-18.0); MEAN CELL VOLUME 97 fl (80.0-100.0); MEAN CORPUSCULAR HEMOGLOBIN 32 pg (27.0-31.0); MEAN CORPUSCULAR HGB CONC 33 g/dl (33.0-37.0); MEAN PLATELET VOLUME 9.9 fl (7.4-10.4); PLATELET COUNT 82 K/mm3 (130-400); RED BLOOD COUNT 4.13 M/mm3 (4.20-5.60); REDCELL DISTRIBUTION WIDTH-CV 15.9 % (11.5-14.5)
[2019-03-20 14:12] LABS: ALBUMIN 3.2 gm/dL (3.5-5.0); BILIRUBIN,TOTAL 1.9 mg/dL (0.0-1.0); CALCIUM 8.6 mg/dL (8.4-10.2); CHOLESTEROL RISK RATIO 4.2; CREATININE, serum 1.12 (0.66-1.25); POTASSIUM 4.1 mmol/L (3.4-5.0); TOTAL PROTEIN 7.3 gm/dL (6.4-8.2)
[2019-03-20 14:41] LABS: TSH w REFLEX 0.932 uIU/mL (0.465-4.680)
[2019-03-20 23:00] LABS: URINE MICROALBUMIN 0.9 mg/dL (0.0-1.7)
== END ==
LOC: COL.LAB 13:21
PROVIDERS: Family Medicine
DX: E11.9 Type 2 diabetes mellitus without complications (principal)

== ENCOUNTER → 2019-03-31 | Outpatient (CLI) | payer OTHER | LOC: COL.LAB 08:14 | DX: K74.60 Unspecified cirrhosis of liver (principal); K75.4 Autoimmune hepatitis ==

== ENCOUNTER → 2019-04-19 | Outpatient (CLI) | payer OTHER ==
[2019-04-19 09:21] LABS: ALBUMIN 3.5 gm/dL (3.5-5.0); BILIRUBIN,TOTAL 1.5 mg/dL (0.0-1.0); CALCIUM 8.9 mg/dL (8.4-10.2); CREATININE, serum 0.79 (0.66-1.25); POTASSIUM 4.1 mmol/L (3.4-5.0); TOTAL PROTEIN 7.9 gm/dL (6.4-8.2)
[2019-04-19 09:24] LABS: HEMOGLOBIN 11.4 g/dl (13.5-18.0); MEAN CELL VOLUME 100 fl (80.0-100.0); MEAN CORPUSCULAR HEMOGLOBIN 32 pg (27.0-31.0); MEAN CORPUSCULAR HGB CONC 32 g/dl (33.0-37.0); MEAN PLATELET VOLUME 10.2 fl (7.4-10.4); PLATELET COUNT 106 K/mm3 (130-400); RED BLOOD COUNT 3.53 M/mm3 (4.20-5.60)
[2019-04-19 09:49] LABS: HEMATOCRIT 35.4 % (42.0-52.0)
[2019-04-19 09:51] LABS: THYROID STIMULATING HORMONE 1.32 uIU/mL (0.465-4.680)
[2019-04-19 10:26] LABS: EOSINOPHIL 1 % (0-4); LYMPHOCYTE 45 % (20.0-51.0); NEUTROPHILS 40 % (42.0-75.2)
[2019-04-19 10:27] LABS: PLATELET ESTIMATE DECREASED (NORMAL)
== END ==
LOC: COL.LAB 08:14
PROVIDERS: Internal Medicine Medical Oncology
DX: D69.6 Thrombocytopenia, unspecified (principal)

== ENCOUNTER → 2019-05-29 | Outpatient (CLI) | payer OTHER ==
[2019-05-29 11:16] LABS: BASO % 0.7 % (0.0-2.0); EOS # 0.1 (0.0-0.7); EOS % 2.4 % (0-4.0); GRAN # 2.2 (1.4-6.5); GRAN % 54.4 % (42.2-75.2); HEMATOCRIT 34.9 % (42.0-52.0); HEMOGLOBIN 11.6 g/dl (13.5-18.0); LYMPH # 1.4 (1.2-3.4); LYMPH % 32.9 % (20.0-51.0); MEAN CELL VOLUME 93 fl (80.0-100.0); MEAN CORPUSCULAR HEMOGLOBIN 31 pg (27.0-31.0); MEAN CORPUSCULAR HGB CONC 33 g/dl (33.0-37.0); MEAN PLATELET VOLUME 10.3 fl (7.4-10.4); MONO # 0.4 (0.1-0.6); MONO % 9.4 % (1.7-9.3); PLATELET COUNT 84 K/mm3 (130-400); RED BLOOD COUNT 3.74 M/mm3 (4.20-5.60); REDCELL DISTRIBUTION WIDTH-CV 14.1 % (11.5-14.5)
[2019-05-29 11:24] LABS: ALBUMIN 3.4 gm/dL (3.5-5.0); BILIRUBIN,TOTAL 1.4 mg/dL (0.0-1.0); CREATININE, serum 0.93 (0.66-1.25); INR 1.3 (0.8-3.0); POTASSIUM 4.6 mmol/L (3.4-5.0); PROTHROMBIN TIME 15.4 SECONDS (9.7-12.8); TOTAL PROTEIN 7.9 gm/dL (6.4-8.2)
== END ==
LOC: COL.LAB 10:49
PROVIDERS: Physician Assistant
DX: K74.60 Unspecified cirrhosis of liver (principal); K75.4 Autoimmune hepatitis

== ENCOUNTER → 2019-06-12 | Outpatient (CLI) | payer OTHER | LOC: COL.LAB 08:30 | DX: K74.60 Unspecified cirrhosis of liver (principal); K75.4 Autoimmune hepatitis ==

== ENCOUNTER → 2019-07-18 | Outpatient (CLI) | payer OTHER ==
[2019-07-18 11:05] LABS: MEAN CELL VOLUME 92 fl (80.0-100.0); MEAN CORPUSCULAR HEMOGLOBIN 30 pg (27.0-31.0); MEAN CORPUSCULAR HGB CONC 33 g/dl (33.0-37.0); MEAN PLATELET VOLUME 10.1 fl (7.4-10.4); PLATELET COUNT 105 K/mm3 (130-400); RED BLOOD COUNT 3.95 M/mm3 (4.20-5.60); REDCELL DISTRIBUTION WIDTH-CV 15.1 % (11.5-14.5)
[2019-07-18 11:07] LABS: HEMATOCRIT 36.2 % (42.0-52.0)
[2019-07-18 11:22] LABS: ALBUMIN 3.6 gm/dL (3.5-5.0); BILIRUBIN,TOTAL 1.9 mg/dL (0.0-1.0); CALCIUM 9.1 mg/dL (8.4-10.2); CREATININE, serum 1.02 (0.66-1.25); POTASSIUM 4.4 mmol/L (3.4-5.0); TOTAL PROTEIN 8.3 gm/dL (6.4-8.2)
[2019-07-18 11:50] LABS: TSH w REFLEX 0.596 uIU/mL (0.465-4.680)
[2019-07-18 21:09] LABS: URINE MICROALBUMIN 1.1 mg/dL (0.0-1.7)
== END ==
LOC: COL.LAB 10:23
PROVIDERS: Family Medicine
DX: E11.9 Type 2 diabetes mellitus without complications (principal)

== ENCOUNTER → 2019-07-24 | Outpatient (CLI) | payer OTHER ==
[2019-07-24 11:24] LABS: BASO % 0.8 % (0.0-2.0); EOS # 0.1 (0.0-0.7); EOS % 1.8 % (0-4.0); GRAN # 2.1 (1.4-6.5); GRAN % 54.3 % (42.2-75.2); HEMOGLOBIN 11.1 g/dl (13.5-18.0); LYMPH # 1.3 (1.2-3.4); MEAN CELL VOLUME 92 fl (80.0-100.0); MEAN CORPUSCULAR HEMOGLOBIN 30 pg (27.0-31.0); MEAN CORPUSCULAR HGB CONC 33 g/dl (33.0-37.0); MEAN PLATELET VOLUME 10.1 fl (7.4-10.4); MONO # 0.4 (0.1-0.6); MONO % 10.1 % (1.7-9.3); PLATELET COUNT 83 K/mm3 (130-400); RED BLOOD COUNT 3.65 M/mm3 (4.20-5.60)
[2019-07-24 11:30] LABS: HEMATOCRIT 33.6 % (42.0-52.0)
[2019-07-24 11:35] LABS: ALBUMIN 3.3 gm/dL (3.5-5.0); BILIRUBIN,TOTAL 1.4 mg/dL (0.0-1.0); CALCIUM 8.8 mg/dL (8.4-10.2); CREATININE, serum 1.06 (0.66-1.25); POTASSIUM 4.3 mmol/L (3.4-5.0); TOTAL PROTEIN 7.6 gm/dL (6.4-8.2)
== END ==
LOC: COL.LAB 10:40
PROVIDERS: Physician Assistant
DX: K74.60 Unspecified cirrhosis of liver (principal); K75.4 Autoimmune hepatitis

== ENCOUNTER → 2019-09-04 | Outpatient (CLI) | payer OTHER ==
[2019-09-04 12:01] LABS: BASO % 0.7 % (0.0-2.0); EOS # 0.1 (0.0-0.7); GRAN # 2.3 (1.4-6.5); GRAN % 49.1 % (42.2-75.2); HEMOGLOBIN 12.1 g/dl (13.5-18.0); LYMPH # 1.7 (1.2-3.4); MEAN CELL VOLUME 93 fl (80.0-100.0); MEAN CORPUSCULAR HEMOGLOBIN 31 pg (27.0-31.0); MEAN CORPUSCULAR HGB CONC 33 g/dl (33.0-37.0); MEAN PLATELET VOLUME 10.1 fl (7.4-10.4); MONO # 0.5 (0.1-0.6); PLATELET COUNT 99 K/mm3 (130-400); RED BLOOD COUNT 3.96 M/mm3 (4.20-5.60); REDCELL DISTRIBUTION WIDTH-CV 15.9 % (11.5-14.5)
[2019-09-04 12:02] LABS: HEMATOCRIT 36.8 % (42.0-52.0)
[2019-09-04 12:04] LABS: ALBUMIN 3.3 gm/dL (3.5-5.0); CREATININE, serum 1.14 (0.66-1.25); POTASSIUM 4.5 mmol/L (3.4-5.0); TOTAL PROTEIN 8.1 gm/dL (6.4-8.2)
== END ==
LOC: COL.LAB 11:27
PROVIDERS: Physician Assistant
DX: K75.4 Autoimmune hepatitis (principal); K74.60 Unspecified cirrhosis of liver; R41.82 Altered mental status, unspecified

== ENCOUNTER → 2019-10-31 | Outpatient (CLI) | payer OTHER | LOC: COL.LAB 10:20 | DX: K75.4 Autoimmune hepatitis (principal); K74.60 Unspecified cirrhosis of liver; R41.82 Altered mental status, unspecified ==

== ENCOUNTER → 2019-11-15 | Outpatient (CLI) | payer OTHER ==
[2019-11-15 10:47] LABS: BASO % 0.6 % (0.0-2.0); EOS # 0.2 (0.0-0.7); EOS % 3.6 % (0-4.0); GRAN # 2.5 (1.4-6.5); GRAN % 53.2 % (42.2-75.2); HEMATOCRIT 37.3 % (42.0-52.0); HEMOGLOBIN 12.1 g/dl (13.5-18.0); LYMPH # 1.5 (1.2-3.4); LYMPH % 31.4 % (20.0-51.0); MEAN CELL VOLUME 94 fl (80.0-100.0); MEAN CORPUSCULAR HEMOGLOBIN 31 pg (27.0-31.0); MEAN CORPUSCULAR HGB CONC 32 g/dl (33.0-37.0); MEAN PLATELET VOLUME 9.7 fl (7.4-10.4); MONO # 0.5 (0.1-0.6); MONO % 10.8 % (1.7-9.3); PLATELET COUNT 101 K/mm3 (130-400); RED BLOOD COUNT 3.97 M/mm3 (4.20-5.60); REDCELL DISTRIBUTION WIDTH-CV 15.4 % (11.5-14.5)
[2019-11-15 10:59] LABS: INR 1.5 (0.8-3.0); PROTHROMBIN TIME 16.7 SECONDS (9.7-12.8)
[2019-11-15 11:00] LABS: ALBUMIN 3.2 gm/dL (3.5-5.0); BILIRUBIN,TOTAL 3.2 mg/dL (0.0-1.0); CALCIUM 8.7 mg/dL (8.4-10.2); CREATININE, serum 1.07 (0.66-1.25); POTASSIUM 4.1 mmol/L (3.4-5.0)
== END ==
LOC: COL.LAB 10:11 → COL.RAD 10:11
PROVIDERS: Internal Medicine
DX: K70.30 Alcoholic cirrhosis of liver without ascites (principal); R16.1 Splenomegaly, not elsewhere classified
CPT/HCPCS: A9585

== ENCOUNTER → 2019-11-21 | Outpatient (CLI) | payer OTHER ==
[2019-11-21 08:13] LABS: BASO % 0.7 % (0.0-2.0); EOS # 0.2 (0.0-0.7); EOS % 4.5 % (0-4.0); GRAN # 2.4 (1.4-6.5); GRAN % 57.2 % (42.2-75.2); HEMOGLOBIN 11.7 g/dl (13.5-18.0); LYMPH # 1.2 (1.2-3.4); LYMPH % 28.1 % (20.0-51.0); MEAN CELL VOLUME 94 fl (80.0-100.0); MEAN CORPUSCULAR HEMOGLOBIN 30 pg (27.0-31.0); MEAN CORPUSCULAR HGB CONC 32 g/dl (33.0-37.0); MEAN PLATELET VOLUME 10.7 fl (7.4-10.4); MONO # 0.4 (0.1-0.6); MONO % 9.3 % (1.7-9.3); PLATELET COUNT 93 K/mm3 (130-400); RED BLOOD COUNT 3.87 M/mm3 (4.20-5.60); REDCELL DISTRIBUTION WIDTH-CV 15.3 % (11.5-14.5)
[2019-11-21 08:21] LABS: HEMATOCRIT 36.5 % (42.0-52.0)
[2019-11-21 08:30] LABS: ALBUMIN 3.2 gm/dL (3.5-5.0); BILIRUBIN,TOTAL 2.1 mg/dL (0.0-1.0); CALCIUM 8.6 mg/dL (8.4-10.2); CREATININE, serum 1.01 (0.66-1.25); TOTAL PROTEIN 7.8 gm/dL (6.4-8.2)
[2019-11-21 08:58] LABS: INR 1.4 (0.8-3.0)
== END ==
LOC: COL.LAB 07:41
PROVIDERS: Internal Medicine
DX: K74.3 Primary biliary cirrhosis (principal)

== ENCOUNTER → 2019-11-29 | Outpatient (CLI) | payer OTHER | LOC: COL.LAB 08:32 | DX: K75.4 Autoimmune hepatitis (principal) ==

== ENCOUNTER → 2019-12-14 | Outpatient (CLI) | payer OTHER ==
[2019-12-14 13:16] LABS: BILIRUBIN UNCONJUGATED 1.4 mg/dL (0.0-1.1); BILIRUBIN,TOTAL 2.4 mg/dL (0.0-1.0); TOTAL PROTEIN 7.4 gm/dL (6.4-8.2)
== END ==
LOC: COL.LAB 12:21
PROVIDERS: Internal Medicine
DX: K75.4 Autoimmune hepatitis (principal)

== ENCOUNTER → 2020-01-01 | Outpatient (CLI) | payer OTHER ==
[2020-01-01 09:59] LABS: ALBUMIN 3.1 gm/dL (3.5-5.0); BILIRUBIN,DIRECT 1.2 mg/dL (0.0-0.4); BILIRUBIN,TOTAL 2.3 mg/dL (0.0-1.0); TOTAL PROTEIN 7.9 gm/dL (6.4-8.2)
== END ==
LOC: COL.LAB 08:38
DX: K75.4 Autoimmune hepatitis (principal)

== ENCOUNTER → 2020-01-17 | Outpatient (CLI) | payer OTHER ==
[2020-01-17 09:27] LABS: ALBUMIN 2.8 gm/dL (3.5-5.0); BILIRUBIN UNCONJUGATED 0.9 mg/dL (0.0-1.1); BILIRUBIN,DIRECT 1.5 mg/dL (0.0-0.4); BILIRUBIN,TOTAL 2.3 mg/dL (0.0-1.0); TOTAL PROTEIN 7.7 gm/dL (6.4-8.2)
== END ==
LOC: COL.LAB 08:22
DX: K75.4 Autoimmune hepatitis (principal)

== ENCOUNTER → 2020-01-17 | Outpatient (CLI) | payer OTHER | LOC: COL.LAB 08:24 | DX: K75.4 Autoimmune hepatitis (principal); K74.60 Unspecified cirrhosis of liver ==

== ENCOUNTER → 2020-01-24 | Outpatient (CLI) | payer OTHER | LOC: COL.LAB 08:24 | DX: E11.9 Type 2 diabetes mellitus without complications (principal) ==

== ENCOUNTER → 2020-01-26 | Outpatient (CLI) | payer OTHER ==
[2020-01-26 09:21] LABS: ALBUMIN 2.8 gm/dL (3.5-5.0); BILIRUBIN UNCONJUGATED 1.6 mg/dL (0.0-1.1); BILIRUBIN,DIRECT 1.2 mg/dL (0.0-0.4); BILIRUBIN,TOTAL 2.9 mg/dL (0.0-1.0); TOTAL PROTEIN 7.8 gm/dL (6.4-8.2)
== END ==
LOC: COL.LAB 08:20
DX: K75.4 Autoimmune hepatitis (principal)

== ENCOUNTER → 2020-03-04 | Outpatient (CLI) | payer OTHER ==
[2020-03-04 17:14] LABS: ALBUMIN 2.8 gm/dL (3.5-5.0); BILIRUBIN,TOTAL 2.6 mg/dL (0.0-1.0); CALCIUM 8.1 mg/dL (8.4-10.2); CREATININE, serum 0.92 (0.66-1.25); POTASSIUM 3.9 mmol/L (3.4-5.0); TOTAL PROTEIN 7.5 gm/dL (6.4-8.2)
[2020-03-04 17:22] LABS: INR 1.5 (0.8-3.0)
[2020-03-04 17:36] LABS: BASO % 0.8 % (0.0-2.0); EOS # 0.3 (0.0-0.7); EOS % 6.7 % (0-4.0); GRAN # 2.5 (1.4-6.5); GRAN % 53.6 % (42.2-75.2); HEMOGLOBIN 11.1 g/dl (13.5-18.0); LYMPH # 1.4 (1.2-3.4); LYMPH % 30.1 % (20.0-51.0); MEAN CELL VOLUME 103 fl (80.0-100.0); MEAN CORPUSCULAR HEMOGLOBIN 33 pg (27.0-31.0); MEAN CORPUSCULAR HGB CONC 32 g/dl (33.0-37.0); MEAN PLATELET VOLUME 10.6 fl (7.4-10.4); MONO # 0.4 (0.1-0.6); MONO % 8.4 % (1.7-9.3); PLATELET COUNT 66 K/mm3 (130-400); RED BLOOD COUNT 3.32 M/mm3 (4.20-5.60); REDCELL DISTRIBUTION WIDTH-CV 16.9 % (11.5-14.5)
[2020-03-04 17:37] LABS: HEMATOCRIT 34.3 % (42.0-52.0)
== END ==
LOC: COL.LAB
PROVIDERS: Internal Medicine
DX: K75.4 Autoimmune hepatitis (principal)

== ENCOUNTER → 2020-03-11 | Outpatient (CLI) | payer OTHER ==
[2020-03-11 08:56] LABS: BILIRUBIN UNCONJUGATED 1.5 mg/dL (0.0-1.1); BILIRUBIN,DIRECT 1.4 mg/dL (0.0-0.4); BILIRUBIN,TOTAL 2.8 mg/dL (0.0-1.0); TOTAL PROTEIN 7.9 gm/dL (6.4-8.2)
== END ==
LOC: COL.LAB 08:21
PROVIDERS: Internal Medicine
DX: K75.4 Autoimmune hepatitis (principal)

== ENCOUNTER → 2020-03-19 | Outpatient (CLI) | payer OTHER | LOC: COL.VAS 11:58 | DX: I49.3 Ventricular premature depolarization (principal); I08.0 Rheumatic disorders of both mitral and aortic valves ==

== ENCOUNTER → 2020-03-19 | Outpatient (CLI) | payer OTHER ==
[2020-03-19 13:26] LABS: ALBUMIN 2.7 gm/dL (3.5-5.0); BILIRUBIN UNCONJUGATED 1.2 mg/dL (0.0-1.1); BILIRUBIN,DIRECT 1.4 mg/dL (0.0-0.4); BILIRUBIN,TOTAL 2.6 mg/dL (0.0-1.0); TOTAL PROTEIN 7.2 gm/dL (6.4-8.2)
== END ==
LOC: COL.LAB 12:04
PROVIDERS: Internal Medicine
DX: K75.4 Autoimmune hepatitis (principal)

== ENCOUNTER 2020-03-22 07:57 | Day surgery (SDC) | payer OTHER ==
[~2020-03-22] VITALS: Ht 170.2 cm; Wt 73.9 kg
[2020-03-22 08:31] VITALS: BP 122/79; PULSE 82; TEMP 97.8
[2020-03-22] MEDS ORDERED: TAMBOCOR50 MG PO (08:46)
[2020-03-22] MEDS ORDERED: XIFAXAN550 MG PO (08:48)
[2020-03-22] MEDS ORDERED: TRESIBA100 UNIT/1 SQ (08:49)
[2020-03-22] MEDS ORDERED: DAILY MULTIPLE1 T18 PO (08:50)
[2020-03-22] MEDS ORDERED: VITAMIN B122500 MCG SL (08:51)
[2020-03-22] MEDS ORDERED: URSO FORTE500 MG PO (08:53)
[2020-03-22] MEDS ORDERED: IMURAN 50MG TAB50 MG PO (08:55)
[2020-03-22] MEDS ORDERED: FOSAMAX 35MG35 MG PO (08:55)
[2020-03-22] MEDS ORDERED: PRIL40 PO (08:57)
[2020-03-22 09:25] VITALS: BP 105/61; PULSE 63; TEMP 97.1
--- NOTE | 2020-03-22 09:25 | NUR ---
PATIENT TRANSPORTED PER CART FROM GI SUITE 1 TO BAY 2 ACCOMPANIED BY JEANNIE RN. PATIENT AMBULATED FROM CART TO CHAIR. SLOW STEADY GAIT WITH 1 ASSIST. MONITORS REAPPLIED. VSS ON ROOM AIR. VERBAL REPORT RECEIVED.
[2020-03-22 09:30] VITALS: BP 113/63; PULSE 69
--- NOTE | 2020-03-22 09:30 | NUR ---
VSS ON ROOM AIR. ACCU CHECK --128. PATIENT DENIES NAUSEA AND DISCOMFORT. PATIEHT EATS MUFFIN AND DRINK JUICE WITHOUT PROBLEMS. AT BEDSIDE.
[2020-03-22 09:45] VITALS: BP 122/71; PULSE 71
[2020-03-22 10:00] VITALS: BP 121/68; PULSE 72
--- NOTE | 2020-03-22 10:09 | NUR ---
VSS ON ROOM AIR. PATIENT STATES DOING WELL. AT BEDSIDE. DR KELSEY IN ROOM AND SPEAKS WITH PATIENT AND .
[2020-03-22 10:13] VITALS: BP 120/63; PULSE 71; TEMP 98.3
--- NOTE | 2020-03-22 10:15 | NUR ---
VSS. IV SITE DC'D WITH CATHETER TIP INTACT. PRESSURE AND BANDAGE APPLIED. PATIENT HAD BEEN PROVIDED WARM BLANKETS SO HAD TO REMOVE BLANKETS TO GET TO ARM. DISCHARGE INSTRUCTIONS GIVEN VERBAL AND DISCHARGE PACKET PROVIDED. QUESTIONS ANSWERED AND PATIENT AND VOICED UNDERSTANDING. PATIENT CHANGES INTO STREET CLOTHES. DISCHARGED PER WHEEL CHAIR ACCOMPANIED BY AMB RN TO [facility] DRIVEN BY .
== END 2020-03-22 10:10 | disposition home or self-care (01) ==
LOC: SDCO 07:57
DX: K21.00 Gastro-esophageal reflux disease with esophagitis, without bleeding (principal); K22.710 Barrett's esophagus with low grade dysplasia; K74.60 Unspecified cirrhosis of liver; R19.7 Diarrhea, unspecified; E11.9 Type 2 diabetes mellitus without complications; K75.4 Autoimmune hepatitis; I08.0 Rheumatic disorders of both mitral and aortic valves; Z20.822 Contact with and (suspected) exposure to COVID-19; Z79.899 Other long term (current) drug therapy; Z79.84 Long term (current) use of oral hypoglycemic drugs; Z79.2 Long term (current) use of antibiotics
CPT/HCPCS: J2704

== ENCOUNTER → 2020-04-01 | Outpatient (CLI) | payer OTHER ==
[~2020-04-01] MED LIST changes: +DAILY MULTIPLE1 T18 PO; +FOSAMAX 35MG35 MG PO; +IMURAN 50MG TAB50 MG PO; +TRESIBA100 UNIT/1 SQ; +URSO FORTE500 MG PO; +VITAMIN B122500 MCG SL; +XIFAXAN550 MG PO
[2020-04-01 10:58] LABS: ALBUMIN 2.9 gm/dL (3.5-5.0); BILIRUBIN UNCONJUGATED 1.6 mg/dL (0.0-1.1); BILIRUBIN,DIRECT 1.8 mg/dL (0.0-0.4); BILIRUBIN,TOTAL 3.4 mg/dL (0.0-1.0); TOTAL PROTEIN 7.6 gm/dL (6.4-8.2)
== END ==
LOC: COL.LAB 10:07
PROVIDERS: Internal Medicine
DX: K75.4 Autoimmune hepatitis (principal)

== ENCOUNTER → 2020-04-16 | Outpatient (CLI) | payer OTHER ==
[2020-04-16 09:39] LABS: ALBUMIN 2.9 gm/dL (3.5-5.0); BILIRUBIN,TOTAL 3.1 mg/dL (0.0-1.0); CALCIUM 8.3 mg/dL (8.4-10.2); CREATININE, serum 0.84 (0.66-1.25); TOTAL PROTEIN 7.4 gm/dL (6.4-8.2)
[2020-04-16 09:50] LABS: BASO % 1.1 % (0.0-2.0); EOS # 0.1 (0.0-0.7); GRAN # 2.2 (1.4-6.5); GRAN % 61.5 % (42.2-75.2); HEMOGLOBIN 11.1 g/dl (13.5-18.0); LYMPH # 0.9 (1.2-3.4); LYMPH % 25.1 % (20.0-51.0); MEAN CELL VOLUME 107 fl (80.0-100.0); MEAN CORPUSCULAR HEMOGLOBIN 37 pg (27.0-31.0); MEAN CORPUSCULAR HGB CONC 34 g/dl (33.0-37.0); MEAN PLATELET VOLUME 10.5 fl (7.4-10.4); MONO # 0.3 (0.1-0.6); MONO % 9.4 % (1.7-9.3); PLATELET COUNT 87 K/mm3 (130-400); RED BLOOD COUNT 3.03 M/mm3 (4.20-5.60); REDCELL DISTRIBUTION WIDTH-CV 17.4 % (11.5-14.5)
[2020-04-16 09:53] LABS: HEMATOCRIT 32.4 % (42.0-52.0)
[2020-04-16 11:01] LABS: INR 1.4 (0.8-3.0); PROTHROMBIN TIME 16.1 SECONDS (9.7-12.8)
== END ==
LOC: COL.LAB
PROVIDERS: Internal Medicine
DX: K75.4 Autoimmune hepatitis (principal)

== ENCOUNTER → 2020-04-16 | Outpatient (CLI) | payer OTHER | LOC: COL.LAB 08:17 | DX: E56.9 Vitamin deficiency, unspecified (principal); K75.4 Autoimmune hepatitis ==

== ENCOUNTER → 2020-05-15 | Outpatient (CLI) | payer OTHER ==
[~2020-05-15] VITALS: Ht 170.2 cm; Wt 67.7 kg
[2020-05-15 07:10] VITALS: BP 136/80; PULSE 80
[2020-05-15 08:15] VITALS: BP 129/73; PULSE 78
== END ==
LOC: COL.RAD 06:45
DX: K74.69 Other cirrhosis of liver (principal); K75.4 Autoimmune hepatitis; M62.59 Muscle wasting and atrophy, not elsewhere classified, multiple sites; R41.82 Altered mental status, unspecified
CPT/HCPCS: 19804

== ENCOUNTER → 2020-05-20 | Outpatient (CLI) | payer OTHER ==
[2020-05-20 08:46] LABS: BASO % 0.7 % (0.0-2.0); EOS # 0.2 (0.0-0.7); EOS % 6.9 % (0-4.0); GRAN # 1.3 (1.4-6.5); GRAN % 47.1 % (42.2-75.2); HEMOGLOBIN 10.6 g/dl (13.5-18.0); LYMPH # 0.9 (1.2-3.4); LYMPH % 34.3 % (20.0-51.0); MEAN CELL VOLUME 112 fl (80.0-100.0); MEAN CORPUSCULAR HEMOGLOBIN 38 pg (27.0-31.0); MEAN CORPUSCULAR HGB CONC 34 g/dl (33.0-37.0); MEAN PLATELET VOLUME 9.7 fl (7.4-10.4); MONO # 0.3 (0.1-0.6); MONO % 10.6 % (1.7-9.3); PLATELET COUNT 94 K/mm3 (130-400); RED BLOOD COUNT 2.82 M/mm3 (4.20-5.60); REDCELL DISTRIBUTION WIDTH-CV 15.8 % (11.5-14.5)
[2020-05-20 08:47] LABS: HEMATOCRIT 31.5 % (42.0-52.0)
[2020-05-20 08:55] LABS: ALBUMIN 2.7 gm/dL (3.5-5.0); BILIRUBIN,TOTAL 2.8 mg/dL (0.0-1.0); CALCIUM 8.5 mg/dL (8.4-10.2); CREATININE, serum 0.87 (0.66-1.25); INR 1.6 (0.8-3.0); POTASSIUM 3.9 mmol/L (3.4-5.0); PROTHROMBIN TIME 17.6 SECONDS (9.7-12.8); TOTAL PROTEIN 7.4 gm/dL (6.4-8.2)
== END ==
LOC: COL.LAB 08:21
PROVIDERS: Internal Medicine
DX: K75.4 Autoimmune hepatitis (principal)

== ENCOUNTER → 2020-06-05 | Outpatient (CLI) | payer OTHER | LOC: COL.RAD 08:00 | DX: K75.4 Autoimmune hepatitis (principal); K74.60 Unspecified cirrhosis of liver; R16.1 Splenomegaly, not elsewhere classified ==

== ENCOUNTER → 2020-07-09 | Outpatient (CLI) | payer OTHER ==
[2020-07-09 09:47] LABS: BASO % 0.8 % (0.0-2.0); EOS # 0.1 (0.0-0.7); EOS % 3.1 % (0-4.0); GRAN # 2.1 (1.4-6.5); GRAN % 53.3 % (42.2-75.2); HEMOGLOBIN 12.9 g/dl (13.5-18.0); LYMPH # 1.3 (1.2-3.4); LYMPH % 33.6 % (20.0-51.0); MEAN CELL VOLUME 112 fl (80.0-100.0); MEAN CORPUSCULAR HEMOGLOBIN 38 pg (27.0-31.0); MEAN CORPUSCULAR HGB CONC 34 g/dl (33.0-37.0); MEAN PLATELET VOLUME 10.5 fl (7.4-10.4); MONO # 0.4 (0.1-0.6); MONO % 9.2 % (1.7-9.3); PLATELET COUNT 110 K/mm3 (130-400); RED BLOOD COUNT 3.39 M/mm3 (4.20-5.60); REDCELL DISTRIBUTION WIDTH-CV 16.9 % (11.5-14.5)
[2020-07-09 09:48] LABS: INR 1.5 (0.8-3.0); PROTHROMBIN TIME 16.9 SECONDS (9.7-12.8)
[2020-07-09 09:51] LABS: ALBUMIN 3.4 gm/dL (3.5-5.0); BILIRUBIN,TOTAL 3.2 mg/dL (0.0-1.0); CALCIUM 9.5 mg/dL (8.4-10.2); CREATININE, serum 1.11 (0.66-1.25); POTASSIUM 4.4 mmol/L (3.4-5.0); TOTAL PROTEIN 8.7 gm/dL (6.4-8.2)
== END ==
LOC: COL.LAB 09:03
PROVIDERS: Physician Assistant
DX: K74.69 Other cirrhosis of liver (principal); K75.4 Autoimmune hepatitis; M62.59 Muscle wasting and atrophy, not elsewhere classified, multiple sites; R74.8 Abnormal levels of other serum enzymes

== ENCOUNTER → 2020-11-14 | Outpatient (CLI) | payer OTHER, MEDICARE ==
[2020-11-14 09:54] LABS: HEMOGLOBIN 10.6 g/dl (13.5-18.0); MEAN CELL VOLUME 106 fl (80.0-100.0); MEAN CORPUSCULAR HEMOGLOBIN 34 pg (27.0-31.0); MEAN CORPUSCULAR HGB CONC 33 g/dl (33.0-37.0); MEAN PLATELET VOLUME 10.9 fl (7.4-10.4); PLATELET COUNT 68 K/mm3 (130-400); RED BLOOD COUNT 3.09 M/mm3 (4.20-5.60); REDCELL DISTRIBUTION WIDTH-CV 15.9 % (11.5-14.5)
--- NOTE | 2020-11-14 09:57 | NUR ---
Called to a CAT call in lab draw room 1. This PT is sitting in lab chair with . PT is diaphoretic. HR is in the 50s. Initial BP is low. blood glucose POC 81. PT states he needs to use the bathroom. PTs states she does not want patient to go to ER. PT is assisted to the bathroom via wheelchair with assistance of two RNs. assists patient with bathroom use. declines any further work up or vital signs to be obtained. PT assisted to 's car to go home.
[2020-11-14 10:05] LABS: HEMATOCRIT 32.6 % (42.0-52.0)
[2020-11-14 10:10] LABS: ALBUMIN 2.7 gm/dL (3.4-4.8); BILIRUBIN,TOTAL 2.7 mg/dL (0.2-1.2); CALCIUM 8.4 mg/dL (8.4-10.2); CHOLESTEROL RISK RATIO 2.6; CREATININE, serum 0.89 mg/dL (0.72-1.25); TOTAL PROTEIN 7.1 gm/dL (6.2-8.1)
[2020-11-14 10:34] LABS: THYROID STIMULATING HORMONE 1.051 uIU/mL (0.350-4.940)
--- NOTE | 2020-11-14 11:17 | NUR ---
RESPONDING TO PATIENT EMERGENCY ALARM IN OUTPATIENT LAB ROOM. UPON ARRIVAL PATIENT IS HARD TO RESPOND AND NOT ABLE TO ANSWER ORIENTATION QUESTIONS IN ROOM. CAT CALL WAS MADE FOR FURTHER ASSESSMENT OF PATIENT, UPON CHECKING VITALS PATIENT HAD HEART RATE OF 45. ICU CHARGE AND RN ARRIVE TO FURTHER ASSESS PATIENT.
== END ==
LOC: COL.LAB 08:42
PROVIDERS: Family Medicine
DX: Z13.220 Encounter for screening for lipoid disorders (principal); Z00.00 Encounter for general adult medical examination without abnormal findings; Z12.5 Encounter for screening for malignant neoplasm of prostate; Z13.0 Encounter for screening for diseases of the blood and blood-forming organs and certain disorders involving the immune mechanism; E11.9 Type 2 diabetes mellitus without complications; K75.4 Autoimmune hepatitis; R79.89 Other specified abnormal findings of blood chemistry

== ENCOUNTER → 2020-11-14 | Outpatient (CLI) | payer OTHER, MEDICARE ==
[2020-11-14 09:52] LABS: BASO % 0.7 % (0.0-2.0); EOS # 0.1 K/mm3 (0.0-0.7); EOS % 4.2 % (0-4.0); GRAN # 1.4 K/mm3 (1.4-6.5); GRAN % 48.4 % (42.2-75.2); HEMOGLOBIN 10.7 g/dl (13.5-18.0); LYMPH # 0.9 K/mm3 (1.2-3.4); LYMPH % 32.6 % (20.0-51.0); MEAN CELL VOLUME 105 fl (80.0-100.0); MEAN CORPUSCULAR HEMOGLOBIN 34 pg (27.0-31.0); MEAN CORPUSCULAR HGB CONC 33 g/dl (33.0-37.0); MONO # 0.4 K/mm3 (0.1-0.6); MONO % 13.7 % (1.7-9.3); PLATELET COUNT 66 K/mm3 (130-400); RED BLOOD COUNT 3.13 M/mm3 (4.20-5.60); REDCELL DISTRIBUTION WIDTH-CV 15.9 % (11.5-14.5)
[2020-11-14 10:05] LABS: HEMATOCRIT 32.7 % (42.0-52.0)
[2020-11-14 10:12] LABS: ALBUMIN 2.8 gm/dL (3.4-4.8); BILIRUBIN,TOTAL 2.7 mg/dL (0.2-1.2); CALCIUM 8.4 mg/dL (8.4-10.2); CREATININE, serum 0.9 mg/dL (0.72-1.25); POTASSIUM 3.9 mmol/L (3.5-4.5); TOTAL PROTEIN 7.1 gm/dL (6.2-8.1)
[2020-11-14 10:13] LABS: INR 1.5 (0.8-3.0); PROTHROMBIN TIME 17.2 SECONDS (9.7-12.8)
== END ==
LOC: COL.LAB 08:40
PROVIDERS: Internal Medicine
DX: K75.4 Autoimmune hepatitis (principal)